=== PATIENT | female | born 1990 | race Caucasian/White ===

== ENCOUNTER → 2016-06-12 | Outpatient (CLI) | payer OTHER ==
[~2016-06-12] MED LIST: TOPI100T20 PO
== END | disposition home or self-care (01) ==
LOC: C.PAPS 16:19
PROVIDERS: ATTEND Obstetrics & Gynecology
DX: Z12.4 Encounter for screening for malignant neoplasm of cervix (principal)

== ENCOUNTER → 2017-04-01 | Outpatient (CLI) | payer OTHER ==
[2017-04-01 12:21] LABS: BASO % 0.6 %; BASO ABS # 0.03 K/uL (0-0.2); EOS % 1.2 %; EOS ABS # 0.06 K/uL (0-0.5); HEMOGLOBIN 10.2 g/dL (12.0-16.0); LYMPH % 39.5 %; LYMPH ABS # 1.91 K/uL (1.2-3.4); MEAN CORPUSCULAR HEMOGLOBIN 18.9 pg (25-34); MEAN CORPUSCULAR HGB CONC 30.9 g/dl (32-36); MONO ABS # 0.29 K/uL (0.11-0.59); NEUT % 52.7 %; NEUT ABS # 2.54 K/uL (1.4-6.5); PLATELET COUNT 250 K/uL (130-400); RED CELL DISTRIBUTION WIDTH CV 17.8 % (11.5-14.5); RED CELL DISTRIBUTION WIDTH SD 39.2 fL (36.4-46.3); RETIC COUNT % 1.1 % (0.5-2.0); WHITE BLOOD COUNT 4.83 K/uL (4.8-10.8)
[2017-04-01 12:59] LABS: ALT/SGPT 20 U/L (12-78); AST/SGOT 12 U/L (15-37); BLOOD UREA NITROGEN 15 mg/dl (7-18); CALCIUM 8.8 mg/dl (8.5-10.1); CARBON DIOXIDE 23 mmol/L (21-32); CREATININE 0.86 mg/dl (0.60-1.20); GLUCOSE 88 mg/dl (70-99); SODIUM 137 mmol/L (136-145)
[2017-04-01 13:02] LABS: ALKALINE PHOSPHATASE 38 U/L (45-117); TOTAL PROTEIN 7.6 gm/dl (6.4-8.2)
== END | disposition home or self-care (01) ==
LOC: C.LAB 11:31
PROVIDERS: ATTEND Internal Medicine Hematology & Oncology
DX: D50.9 Iron deficiency anemia, unspecified (principal)